=== PATIENT | female | born 1970 | race Caucasian/White ===

== ENCOUNTER 2021-01-17 08:30 | Emergency (ER) | payer OTHER ==
[~2021-01-17] VITALS: Ht 175.3 cm; Wt 96.8 kg
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
[2021-01-17] MEDS ORDERED: ONDANSETRON ODT 4 MG ONE (09:19)
[2021-01-17] MEDS ORDERED: ACETAMINOPHEN 500 MG TABLET ONE (09:19)
[2021-01-17] MEDS ORDERED: ACETAMINOPHEN 500 MG TABLET PO ONE (09:30)
[2021-01-17] MEDS ORDERED: ONDANSETRON ODT 4 MG PO ONE (09:30)
[2021-01-17 10:03] VITALS: BP 127/68
--- NOTE | 2021-01-17 10:03 | NUR ---
PT RESTING ON GURNEY. NADN. AVINA. PT CHART REVIEWED AND PLACED FOR RECHECK.
== END 2021-01-17 10:35 | disposition home or self-care (01) ==
LOC: ED 10:00
DX: S00.83XA Contusion of other part of head, initial encounter (principal); R11.10 Vomiting, unspecified; Y04.8XXA Assault by other bodily force, initial encounter; Y93.9 Activity, unspecified; Y92.89 Other specified places as the place of occurrence of the external cause; Y99.8 Other external cause status
CPT/HCPCS: 70450; 99284; Q0162